=== PATIENT | male | born 1990 | race American Indian/Alaskan Native ===

== ENCOUNTER 2022-04-21 06:40 | Emergency (ER) | payer SELFPAY ==
--- NOTE | 2022-04-21 09:22 | Emergency Department Report ---
- General Chief complaint: Wound/Laceration Stated complaint: CYST ON BUTTOCKS Time Seen by Provider: 04/21/22 09:01 Source: patient Mode of arrival: Ambulatory Limitations: No Limitations - History of Present Illness Initial comments: 31-year-old black male with a past medical history of asthma presents to the emergency department for evaluation of abscess to right buttocks. He states that he noticed abscess 3 days ago, and it has gotten increasingly more painful and larger. He states that abscess burst and drained while in the ER waiting room. He denies fever, abdominal pain, nausea, and vomiting. MD complaint: abscess/boil -: Gradual, days(s) (3) Location: buttocks Severity: moderate Severity scale (0 -10): 5 Quality: aching Consistency: constant Associated symptoms: denies other symptoms Treatments Prior to Arrival: none - Related Data Previous Rx's Medication Instructions Recorded Last Taken Type Cyclobenzaprine [Flexeril 10mg] 10 mg PO TID PRN #15 tablet 08/29/14 Unknown Rx Ibuprofen [Motrin 600 MG tab] 600 mg PO Q8H PRN #20 tablet 08/29/14 Unknown Rx traMADoL [Ultram 50 MG tab] 50 mg PO Q6HR PRN #14 tablet 08/29/14 Unknown Rx Acetaminophen/Codeine [Tylenol 1 tab PO Q6H PRN #12 tab 04/21/22 Unknown Rx /Codeine # 3 tab] Naproxen 500 mg PO BID #14 tab 04/21/22 Unknown Rx Sulfamethoxazole/Trimethoprim 1 each PO BID #14 tab 04/21/22 Unknown Rx [Bactrim DS TAB] Allergies Allergy/AdvReac Type Severity Reaction Status Date / Time shellfish derived Allergy Hives Verified 04/21/22 07:41 Abscess Boil HPI - HPI Chief Complaint: Wound/Laceration Stated Complaint: CYST ON BUTTOCKS Time Seen by Provider: 04/21/22 09:01 Duration: 3 Days Location: Other (Right buttocks) Severity: Moderate History: Yes Pain, Yes Purulent Drainage, Yes Previous History, No Fever, No Numbness, No Foreign Body, No Insect Bite Home Medications: Previous Rx's Medication Instructions Recorded Last Taken Type Cyclobenzaprine [Flexeril 10mg] 10 mg PO TID PRN #15 tablet 08/29/14 Unknown Rx Ibuprofen [Motrin 600 MG tab] 600 mg PO Q8H PRN #20 tablet 08/29/14 Unknown Rx traMADoL [Ultram 50 MG tab] 50 mg PO Q6HR PRN #14 tablet 08/29/14 Unknown Rx Acetaminophen/Codeine [Tylenol 1 tab PO Q6H PRN #12 tab 04/21/22 Unknown Rx /Codeine # 3 tab] Naproxen 500 mg PO BID #14 tab 04/21/22 Unknown Rx Sulfamethoxazole/Trimethoprim 1 each PO BID #14 tab 04/21/22 Unknown Rx [Bactrim DS TAB] Allergies/Adverse Reactions: Allergies Allergy/AdvReac Type Severity Reaction Status Date / Time shellfish derived Allergy Hives Verified 04/21/22 07:41 ED Review of Systems ROS: Stated complaint: CYST ON BUTTOCKS Other details as noted in HPI Comment: All other systems reviewed and negative Constitutional: denies: chills, fever Respiratory: denies: shortness of breath Cardiovascular: denies: chest pain, palpitations Gastrointestinal: denies: abdominal pain, nausea, vomiting Musculoskeletal: denies: back pain ED Past Medical Hx - Past Medical History Hx Asthma: Yes - Social History Smoking Status: Current Every Day Smoker Substance Use Type: Alcohol - Medications Home Medications: Home Medications Medication Instructions Recorded Confirmed Last Taken Type Cyclobenzaprine [Flexeril 10mg] 10 mg PO TID PRN #15 tablet 08/29/14 Unknown Rx Ibuprofen [Motrin 600 MG tab] 600 mg PO Q8H PRN #20 tablet 08/29/14 Unknown Rx traMADoL [Ultram 50 MG tab] 50 mg PO Q6HR PRN #14 tablet 08/29/14 Unknown Rx Acetaminophen/Codeine [Tylenol 1 tab PO Q6H PRN #12 tab 04/21/22 Unknown Rx /Codeine # 3 tab] Naproxen 500 mg PO BID #14 tab 04/21/22 Unknown Rx Sulfamethoxazole/Trimethoprim 1 each PO BID #14 tab 04/21/22 Unknown Rx [Bactrim DS TAB] ED Physical Exam - General Limitations: No Limitations General appearance: alert, in no apparent distress - Head Head exam: Present: atraumatic, normocephalic - Eye Eye exam: Present: normal appearance. Absent: conjunctival injection - Neck Neck exam: Present: normal inspection - Respiratory Respiratory exam: Absent: respiratory distress - Cardiovascular Cardiovascular Exam: Present: tachycardia - GI/Abdominal GI/Abdominal exam: Absent: distended, tenderness - External exam: Present: other (Abscessed area 4 cm x 4 cm noted to right buttocks. Area noted to be draining purulent drainage with erythema and small amount of edema noted. Area tender to touch.) - Extremities Exam Extremities exam: Present: normal inspection - Back Exam Back exam: Present: normal inspection. Absent: CVA tenderness (R), CVA tenderness (L) - Neurological Exam Neurological exam: Present: alert, oriented X3 - Psychiatric Psychiatric exam: Present: normal affect, normal mood - Skin Skin exam: Present: warm, dry, intact, normal color ED Course Vital Signs 04/21/22 04/21/22 04/21/22 07:39 08:58 09:48 Temperature 98.3 F 98.7 F Pulse Rate 108 H 70 84 Respiratory 18 14 18 Rate Blood Pressure 123/90 112/76 118/83 [Left] O2 Sat by Pulse 99 100 99 Oximetry ED Medical Decision Making - Medical Decision Making 31-year-old black male with a past medical history of asthma presents to the emergency department for evaluation of abscess to right buttocks. He states that he noticed abscess 3 days ago, and it has gotten increasingly more painful and larger. He states that abscess burst and drained while in the ER waiting room. He denies fever, abdominal pain, nausea, and vomiting. Exam consistent with abscess to right buttocks. Abscess already draining. Patient be discharged home with 7-day course of Bactrim, naproxen, and Tylenol 3. He is advised to take medications as prescribed and follow-up with his primary care provider if no improvement or worsening symptoms. He is advised to return to the emergency department if he develops fever or any concerning symptoms. He verbalizes understanding of and agreement with plan of care. Critical care attestation.: If time is entered above; I have spent that time in minutes in the direct care of this critically ill patient, excluding procedure time. ED Disposition Clinical Impression: Abscess of buttock, right Disposition: 01 HOME / SELF CARE / HOMELESS Is pt being admited?: No Does the pt Need Aspirin: No Condition: Stable Instructions: Skin Abscess, [id number] Additional Instructions: Take medications as prescribed. Follow-up with your primary care provider if no improvement or worsening symptoms. Return to the emergency department if you develop fever or any worsening symptoms. Prescriptions: Sulfamethoxazole/Trimethoprim [Bactrim DS TAB] 1 each PO BID #14 tab Naproxen 500 mg PO BID #14 tab Acetaminophen/Codeine [Tylenol /Codeine # 3 tab] 1 tab PO Q6H PRN #12 tab PRN Reason: Pain, Moderate (4-6) Referrals: JOCELYNN VALENZUELA MD [Staff Physician] - 3-5 Days Time of Disposition: 09:21
[2022-04-21 09:50] VITALS: BP 118/83
== END 2022-04-21 09:48 | disposition home or self-care (01) ==
LOC: ED 06:40
DX: L02.31 Cutaneous abscess of buttock (principal); J45.909 Unspecified asthma, uncomplicated; F17.200 Nicotine dependence, unspecified, uncomplicated; Z72.89 Other problems related to lifestyle; Z91.013 Allergy to seafood; Z79.899 Other long term (current) drug therapy
CPT/HCPCS: 99282